=== PATIENT | male | born 1950 | race Caucasian/White ===

== ENCOUNTER 2016-12-26 06:47 | Day surgery (SDC) | payer OTHER ==
[2016-12-24 09:05] LABS: HEMATOCRIT 42.9 % (42.0-52.0); HEMOGLOBIN 15.1 g/dL (14.0-18.0); MCH 33.8 PG (27-31); MCHC 35.2 g/dL (33-37); MPV 8.9 FL (7.4-10.4); RBC 4.47 XMIL (4.7-6.1)
--- NOTE | 2016-12-24 09:27 | Diag Imaging Result Document ---
PROCEDURE NAME: CHEST-2 VIEWS - 12/24/2016 PA AND LATERAL RADIOGRAPH OF THE CHEST: COMPARISON: None available. FINDINGS: The lungs are grossly clear. There is no discrete pleural fluid collection or evidence of pneumothorax. The cardiomediastinal silhouette and upper airway are grossly unremarkable. IMPRESSION: No evidence of acute chest pathology.
--- NOTE | 2016-12-24 10:25 | EKG Report ---
Test Performed on : 12/24/2016 08:52:05 AM Test Reason : PAT Blood Pressure : / mmHG Vent. Rate : 062 BPM Atrial Rate : 062 BPM P-R Int : 174 ms QRS Dur : 092 ms QT Int : 438 ms P-R-T Axes : 055 005 056 degrees QTc Int : 444 ms Normal sinus rhythm. Normal ECG No previous ECGs available Confirmed by Jose Elias Carbajal MD ([id number]) on 12/24/2016 9:48:47 PM
[2016-12-26] MEDS ORDERED: LR 1,000 ML ONE ×2 (07:20→10:38)
[2016-12-26] MEDS ORDERED: REGLAN ONE (07:20)
[2016-12-26] MEDS ORDERED: PEPCID ONE (07:20)
[2016-12-26] MEDS ORDERED: KEFZOL 1 GM/D5W 50 ML ONE (07:20)
[2016-12-26] MEDS ORDERED: MARCAINE 0.25% PF ONE ×2 (07:59→08:02)
[2016-12-26] MEDS ORDERED: FENTANYL ONE (10:01)
[2016-12-26] MEDS ORDERED: DIPRIVAN 1% ONE (10:01)
[2016-12-26] MEDS ORDERED: EPHEDRINE ONE (10:38)
[2016-12-26] MEDS ORDERED: ZOFRAN ONE (10:38)
[2016-12-26] MEDS ORDERED: XYLOCAINE-MPF 2% ONE (10:38)
[2016-12-26] MEDS ORDERED: DECADRON ONE (10:38)
--- NOTE | 2016-12-26 10:52 | OPERATIVE NOTE ---
PROCEDURE DATE: 12/26/2016 PREOPERATIVE DIAGNOSIS: Degenerative joint disease 1st metatarsophalangeal joint right foot. POSTOPERATIVE DIAGNOSIS: Degenerative joint disease 1st metatarsophalangeal joint right foot. PROCEDURE: Total joint implant right big toe joint. SURGEON: Rupert Lazaro DPM ANESTHESIA: General. HEMOSTASIS: Thigh tourniquet 350 mmHg. DESCRIPTION OF PROCEDURE: The patient was brought to the operating room, placed on the table in the supine position. General anesthesia was then induced. Patient was then prepped and draped in the usual aseptic manner. The procedure was begun by using the Esmarch to exsanguinate the right foot and leg, and then tourniquet was raised to 350 mmHg. Dorsal linear incision was placed at the 1st metatarsophalangeal joint. This was deepened down to the level of periosteum and capsule taking care to identify and retract the neurovascular bundle. Any small vessels were bovied. The periosteum and capsule were then incised along the same as the skin incision and the 1st metatarsal was delivered into the wound. It should be noted that he had several small bony ossicles on the dorsal surface of the joint and these were removed and sent as a specimen. It should also be noted that had some gouty tophi within the joint and the joint surface of both the 1st metatarsal head and the base of the proximal phalanx were almost completely denuded of cartilage. The procedure at this point, involved resecting the 1st metatarsal head with a sagittal saw and the base of the proximal phalanx, and a small portion of the medial head of the 1st metatarsal to square it up. We then used the broach and successive sizers and reamers to place a size 3 implant in the joint. This was done after adequate reaming and sizing and copious irrigation. Normal saline was used to irrigate the wound. We closed the capsule in corrected position using 2-0 Vicryl and the skin using 4-0 nylon. It should be noted that the tourniquet was released prior to closure and any hemostasis was achieved using a Bovie. He received 10 mL of 0.25% Marcaine plain postoperatively and a sterile compressive dressing. Left the operating room with vital signs stable, capillary refill time intact to the right foot. Follow up with Dr. Lazaro on Thursday or sooner if there are any problems.
[2016-12-26 12:26] VITALS: BP 141/74
== END 2016-12-26 11:40 | disposition home or self-care (01) ==
LOC: OPS 06:47
PROVIDERS: ATTEND Podiatrist
DX: M19.071 Primary osteoarthritis, right ankle and foot (principal); I10 Essential (primary) hypertension; E78.00 Pure hypercholesterolemia, unspecified
CPT/HCPCS: 71020; 80051; 85027; 88304; 88311; 93005; 93010; J0690; J1100; J2405; J3010; J7120; S0020